=== PATIENT | male | born 1965 | race Native Hawaiian/Other Pacific Islander ===

== ENCOUNTER 2020-03-30 23:58 | Inpatient (IN) | payer OTHER ==
[~2020-03-30] VITALS: Ht 175.3 cm; Wt 128.2 kg
[2020-03-31 00:15] VITALS: BP 125/54; TEMP 101.2
[2020-03-31 01:10] LABS: SODIUM 137 mmol/L (136-145)
[2020-03-31 01:25] LABS: PARTIAL THROMBOPLASTIN TIME 29.6 SECONDS (24.5-33.6)
[2020-03-31 01:30] LABS: PLATELET COUNT 213 K/uL (142-355)
[2020-03-31 03:58] VITALS: BP 117/70; TEMP 100.6; Ht 175.3 cm; Wt 128.2 kg
[2020-03-31] MEDS ORDERED: DIOVAN HCT320 MG/25 PO (05:25)
[2020-03-31] MEDS ORDERED: LOPRESSOR100 MG PO (05:26)
[2020-03-31] MEDS ORDERED: ROSU10TA PO (05:27)
[2020-03-31] MEDS ORDERED: LAMICTAL XR300 MG PO (05:29)
[2020-03-31] MEDS ORDERED: FORTAMET1000 MG PO (05:33)
[2020-03-31] MEDS ORDERED: BUMEX1 MG PO (05:35)
[2020-03-31 05:43] LABS: PLATELET COUNT 224 K/uL (142-355)
[2020-03-31 06:11] LABS: POTASSIUM 4.9 mmol/L (3.6-5.2)
[2020-03-31 08:00] VITALS: BP 142/86; TEMP 98.9
[2020-03-31 12:00] VITALS: BP 113/78; TEMP 99.1
[2020-03-31 16:00] VITALS: BP 110/61; TEMP 98.7
[2020-03-31 20:00] VITALS: BP 126/71; TEMP 99.4
[2020-04-01] VITALS (7 sets, daily range): BP systolic 99–120; BP diastolic 48–70; TEMP 98–98.9
[2020-04-01 07:15] LABS: POTASSIUM 4.1 mmol/L (3.6-5.2)
[2020-04-01 07:18] LABS: PLATELET COUNT 240 K/uL (142-355)
[2020-04-02 03:52] VITALS: BP 118/64; TEMP 98.2
[2020-04-02 08:00] VITALS: BP 13/42; BP 136/42; TEMP 98.5
[2020-04-02 10:39] LABS: PLATELET COUNT 294 K/uL (142-355); POTASSIUM 4.2 mmol/L (3.6-5.2)
[2020-04-02 12:00] VITALS: BP 117/68; TEMP 98.8
[2020-04-02 16:00] VITALS: BP 122/62; TEMP 99.7
[2020-04-02 19:43] VITALS: BP 130/57; TEMP 98.1
[2020-04-03] VITALS: BP 135/61; TEMP 97.9
[2020-04-03 04:02] VITALS: BP 128/65; TEMP 98.1
[2020-04-03 06:16] LABS: PLATELET COUNT 304 K/uL (142-355)
[2020-04-03 06:28] LABS: POTASSIUM 4.3 mmol/L (3.6-5.2)
[2020-04-03 08:00] VITALS: BP 123/54; TEMP 98.6
[2020-04-03 12:00] VITALS: BP 117/79; TEMP 98.3
[2020-04-03 16:00] VITALS: BP 136/67; TEMP 98.4
[2020-04-03 20:00] VITALS: BP 136/66; TEMP 98.8
[2020-04-04] VITALS (7 sets, daily range): BP systolic 97–138; BP diastolic 41–67; TEMP 97.9–100.3
[2020-04-04 07:07] LABS: PLATELET COUNT 310 K/uL (142-355)
[2020-04-05 04:15] VITALS: BP 124/56; TEMP 99.4
[2020-04-05 06:48] LABS: PLATELET COUNT 257 K/uL (142-355)
[2020-04-05 07:16] LABS: POTASSIUM 4.1 mmol/L (3.6-5.2)
[2020-04-05 08:00] VITALS: BP 126/64; TEMP 99.6
[2020-04-05 12:00] VITALS: BP 124/58; TEMP 98.4
[2020-04-05 16:00] VITALS: BP 101/63; TEMP 99.2
[2020-04-05 20:00] VITALS: BP 155/76; TEMP 98.7
[2020-04-06 00:14] VITALS: BP 106/50; TEMP 98.4
[2020-04-06 04:10] VITALS: BP 140/68; TEMP 99.5
[2020-04-06 05:25] LABS: PLATELET COUNT 316 K/uL (142-355)
[2020-04-06 05:53] LABS: POTASSIUM 4.2 mmol/L (3.6-5.2)
[2020-04-06 08:00] VITALS: BP 147/70; TEMP 98.6
[2020-04-06 12:00] VITALS: BP 113/72; TEMP 99.6
== END 2020-04-06 13:40 | disposition home or self-care (01) | DRG 177 ==
LOC: ED 23:58 → MED/SURG 03-31 01:59
PROVIDERS: Hospitalist; ADMIT Family Medicine; ATTEND Family Medicine
DX: U07.1 COVID-19 (principal); J18.8 Other pneumonia, unspecified organism; Z68.42 Body mass index [BMI] 45.0-49.9, adult; E46 Unspecified protein-calorie malnutrition; F11.20 Opioid dependence, uncomplicated; E87.1 Hypo-osmolality and hyponatremia; E11.65 Type 2 diabetes mellitus with hyperglycemia; I10 Essential (primary) hypertension; R00.0 Tachycardia, unspecified; F41.8 Other specified anxiety disorders; E66.01 Morbid (severe) obesity due to excess calories; M54.89 Other dorsalgia; R09.02 Hypoxemia; G47.39 Other sleep apnea
CPT/HCPCS: 36415; 36600; 80053; 80074; 82550; 82553; 82728; 82805; 83605; 83735; 83880; 84100; 84484; 85007; 85027; 85379; 85610; 85730; 86140; 87040; 87070; 87077; 87185; 87186; 87205; 87502; 87535; 87635; 87651; 90686; 93005; 94664; 94667; 94668; 94760; 96365; 96375; 99284; G0432; J1100; J1450; J1650; J1940; J1956; J2060; J3490; U0003